=== PATIENT | female | born 1975 | race African-American/Black ===

== ENCOUNTER 2016-08-21 18:36 | Emergency (ER) | payer MEDICAID ==
[~2016-08-21] VITALS: Ht 180.3 cm; Wt 92.5 kg
[~2016-08-21 18:36] MED LIST: IBUPROFEN600 MG ORAL
[2016-08-21] MEDS ORDERED: BP pill (19:07)
[2016-08-21 19:15] VITALS: BP 120/81
[2016-08-21] MEDS ORDERED: OFLOXACIN10 ML OP (19:25)
[2016-08-21 20:00] VITALS: BP 123/78
--- NOTE | 2016-08-21 20:12 | Emergency Room Report ---
History of Present Illness General Chief Complaint: Eye Problems Present Illness HPI The patient is a 41-year-old female presenting for left eye redness and discharge for the past 2 days. The patient states that she wakes in the morning with the left eye crusted shut with yellow discharge. She admits to sick contact with grandson with the same symptoms. She denies pain. She denies changes in vision. She denies any other symptoms including nausea, vomiting, fever, chills, cough Allergies: Coded Allergies: No Known Allergies (Unverified , 01/27/15) Patient History Past Medical History: see triage record Pertinent Family History: none Last Menstrual Period: 08/17/16 Now: No Reviewed Nursing Documentation: PMH: Agreed, PSxH: Agreed Nursing Documentation-PMH Hx Hypertension: Yes Review of Systems All Other Systems: negative except mentioned in HPI Physical Exam Vital Signs Date Time Temp Pulse Resp B/P Pulse Ox O2 Delivery O2 Flow Rate FiO2 08/21/16 19:04 97.2 73 16 120/81 99 Room Air Sp02 EP Interpretation: reviewed, normal General Appearance: no apparent distress, alert, GCS 15, non-toxic Head: normocephalic, atraumatic Eyes: left eye Scleral Injection, left eye other - yellow DC, bilateral eye EOMI, bilateral eye PERRL ENT: hearing grossly normal, normal pharynx, no angioedema, normal voice Neck: full range of motion, supple/symm/no masses Respiratory: chest non-tender, lungs clear, normal breath sounds, speaking full sentences Musculoskeletal: back normal, gait/station normal, normal range of motion, non- tender Neurologic: alert, oriented x3, responsive, motor strength/tone normal, sensory intact, speech normal Psychiatric: judgement/insight normal, memory normal, mood/affect normal, no suicidal/homicidal ideation Skin: normal color, no rash, warm/dry, well hydrated Lymphatic: no adenopathy Medical Decision Making PA Attestation Dr. Dia is my supervising physician. Patient management was discussed with my supervising physician Diagnostic Impression: Primary Impression: Bacterial conjunctivitis of left eye ER Course The patient is a 41-year-old female for left eye redness and discharge Differential diagnoses considered but not limited to allergic conjunctivitis, bacterial conjunctivitis, viral conjunctivitis, blepharitis, hordeolum Physical exam: Vitals are within normal limits. No apparent distress. HEENT: Left eye has conjunctival injection with yellow discharge. PERRL. No tearing. EOMI Right eye is unremarkable. Otherwise exam unremarkable The patient will be discharged home with a prescription for ocuflox and will FU with PMD Last Vital Signs Date Time Temp Pulse Resp B/P Pulse Ox O2 Delivery O2 Flow Rate FiO2 08/21/16 20:00 97.2 75 17 123/78 99 Room Air Status: improved Disposition: HOME, SELF-CARE Condition: Improved Scripts Ofloxacin (Ofloxacin) 5 Ml Drops 2 DROP OP QID, #5 ML Prov: CONCEPCION TEE 08/21/16 Patient Instructions: Bacterial Conjunctivitis Additional Instructions: I discussed my findings with the patient. All questions and concerns have been answered. Treatment and medication compliance have been addressed. I advised the patient that they need to follow up with PMD in 3-5 days. Return to ED if symptoms worsen, new symptoms arise, or if needed for any reason. Patient verbalized understanding of discharge instructions. CONCEPCION TEE Aug 21, 2016 20:12
== END 2016-08-21 20:00 | disposition home or self-care (01) ==
LOC: EMR 19:10
DX: H10.89 Other conjunctivitis (principal); B96.89 Other specified bacterial agents as the cause of diseases classified elsewhere
CPT/HCPCS: 99283